=== PATIENT | female | born 1945 | race Two or more races ===

== ENCOUNTER 2017-08-07 18:30 | Inpatient (IN) | payer MEDICARE ==
[2017-08-07] MEDS ORDERED: OLANZapine 5 MG TABLET PO (21:15)
[2017-08-07] MEDS ORDERED: oxyCODONE IR 5 MG TABLET PO ×2 (21:15)
[2017-08-07] MEDS ORDERED: SIMETHICONE 80 MG TAB.CHEW PO (21:15)
[2017-08-07] MEDS ORDERED: risperiDONE 1 MG TABLET. PO (21:30)
[2017-08-07] MEDS: risperiDONE 1 MG TABLET. PO (21:47)
[2017-08-07] MEDS: OXcarbazepine 300 MG TABLET PO (21:47)
[2017-08-07] MEDS: oxyCODONE INTENSOL 20 MG/ML ORAL.CONC. PO (21:50)
[2017-08-07] MEDS: IV NORMAL SALINE 1000ML BAG 1,000 ML IV (22:09)
[2017-08-07] MEDS: ZOLPIDEM 5 MG TABLET. PO (22:09)
[2017-08-07 22:17] LABS: HEMATOCRIT 40.6 % (36.0-47.0); MEAN CORPUSCULAR HEMOGLOBIN 31 pg (25-35); MEAN CORPUSCULAR HGB CONC 35 g/dL (31-37); MEAN CORPUSCULAR VOLUME 91 fL (79-100); PLATELET COUNT 298 x10^3/uL (140-400); RED BLOOD COUNT 4.49 x10^6/uL (3.50-5.40); RED CELL DISTRIBUTION WIDTH 12.7 % (11.5-14.5)
[2017-08-07 22:34] LABS: ALBUMIN 3.5 g/dL (3.4-5.0); ALBUMIN/GLOBULIN RATIO 0.9 (1.0-1.7); ALK PHOS 135 U/L (46-116); ALT (SGPT) 19 U/L (14-59); ANION GAP 12 (6-14); AST (SGOT) 15 U/L (15-37); BLOOD UREA NITROGEN 4 mg/dL (7-20); BUN/CREATININE RATIO 5 (6-20); CALCIUM 9.3 mg/dL (8.5-10.1); CARBON DIOXIDE 25 mmol/L (21-32); CHLORIDE 103 mmol/L (98-107); CREATININE 0.8 mg/dL (0.6-1.0); GFR 70.9; GLUCOSE 128 mg/dL (70-99); POTASSIUM 3.6 mmol/L (3.5-5.1); SODIUM 140 mmol/L (136-145); TOTAL BILIRUBIN 0.4 mg/dL (0.2-1.0); TOTAL PROTEIN 7.5 g/dL (6.4-8.2)
[2017-08-08] MEDS: oxyCODONE INTENSOL 20 MG/ML ORAL.CONC. PO ×4 (03:00→20:59)
[2017-08-08] MEDS: IV NORMAL SALINE 1000ML BAG 1,000 ML IV ×2 (09:07→23:50)
[2017-08-08] MEDS: OXcarbazepine 300 MG TABLET PO ×3 (09:08→21:00)
[2017-08-08] MEDS ORDERED: MAGNESIUM HYDROXIDE 2,400 MG/30 ML ORAL.SUSP. PO (09:45)
[2017-08-08] MEDS ORDERED: diphenhydrAMINE HCL 25 MG CAPSULE PO (09:45)
[2017-08-08] MEDS ORDERED: ACETAMINOPHEN 325 MG TABLET. PO (09:45)
[2017-08-08] MEDS: CHOLECALCIFEROL (VITAMIN D3) 5,000 UNIT CAPSULE PO (10:00)
[2017-08-08] MEDS: MULTIVITAMIN with MINERAL TABLET. PO (10:00)
[2017-08-08] MEDS: HYDROCORTISONE ACETATE 25 MG SUPP.RECT RC ×3 (10:00→21:00)
[2017-08-08] MEDS: DIPHENOXYLATE/ATROPINE TABLET. PO ×3 (11:00→21:00)
[2017-08-08] MEDS ORDERED: NON FORMULARY ITEM (Albuterol Sulfate (Albuterol Sulfate Conc Neb Soln) 1 VIAL) NEB (12:00)
[2017-08-08] MEDS: ALBUTEROL SULFATE 2.5 MG/3 ML NEBU. NEB ×3 (12:00→18:00)
[2017-08-08] MEDS: IV RINGERS,LACTATED 1000ML 1,000 ML IV (12:22)
[2017-08-08] MEDS ORDERED: fentaNYL PF VIAL 100 MCG/2 ML VIAL IV ×2 (12:30)
[2017-08-08] MEDS ORDERED: LIDOCAINE 1% PF 2 ML VIAL. ID (12:30)
[2017-08-08] MEDS ORDERED: MIDAZOLAM HCL/PF 2 MG/2 ML VIAL. IV (12:30)
[2017-08-08] MEDS ORDERED: PROPOFOL 20 ML IV (13:17)
[2017-08-08] MEDS ORDERED: LIDOCAINE 2% PF Vial for OR 5 ML VIAL. (13:18)
[2017-08-08] MEDS: ONABOTULINUMTOXINA 100 UNIT VIAL. ID ×2 (13:27→13:30)
[2017-08-08] MEDS: MORPHINE SULFATE 4 MG/ML DISP.SYRIN. IV ×2 (16:20→23:50)
[2017-08-08] MEDS: ZOLPIDEM 5 MG TABLET. PO (20:52)
[2017-08-08] MEDS: risperiDONE 1 MG TABLET. PO (20:58)
[2017-08-09] MEDS: DIPHENOXYLATE/ATROPINE TABLET. PO ×3 (09:18→21:00)
[2017-08-09] MEDS: OXcarbazepine 300 MG TABLET PO ×2 (09:18→21:00)
[2017-08-09] MEDS: CHOLECALCIFEROL (VITAMIN D3) 5,000 UNIT CAPSULE PO (09:19)
[2017-08-09] MEDS: HYDROCORTISONE ACETATE 25 MG SUPP.RECT RC ×3 (09:19→21:00)
[2017-08-09] MEDS: MULTIVITAMIN with MINERAL TABLET. PO (09:19)
[2017-08-09] MEDS: oxyCODONE INTENSOL 20 MG/ML ORAL.CONC. PO ×3 (09:31→18:13)
[2017-08-09 09:57] LABS: BILIRUBIN,URINE NEGATIVE (NEG); CLARITY,URINE CLEAR; COLOR,URINE YELLOW; GLUCOSE,URINE NEGATIVE (NEG); NITRITE,URINE NEGATIVE (NEG); PH,URINE 7.5; PROTEIN,URINE NEGATIVE (NEG-TRACE); UROBILINOGEN,URINE 0.2 mg/dL (0.2 mg/dL)
[2017-08-09 10:06] LABS: BACTERIA,URINE FEW /HPF (0-FEW); RBC,URINE 0 /HPF (0-2); SQUAMOUS EPITHELIAL CELL,UR MOD /LPF
[2017-08-09] MEDS: IV NORMAL SALINE 1000ML BAG 1,000 ML IV (11:15)
[2017-08-09] MEDS: risperiDONE 1 MG TABLET. PO (21:10)
[2017-08-09] MEDS: ZOLPIDEM 5 MG TABLET. PO (21:10)
[2017-08-10] MEDS: oxyCODONE INTENSOL 20 MG/ML ORAL.CONC. PO ×5 (03:11→22:13)
[2017-08-10 08:11] LABS: THYROID STIM HORMONE (TSH) 1.296 uIU/mL (0.358-3.74)
[2017-08-10] MEDS: OXcarbazepine 300 MG TABLET PO ×2 (09:00→21:00)
[2017-08-10] MEDS: DIPHENOXYLATE/ATROPINE TABLET. PO ×3 (09:00→21:00)
[2017-08-10] MEDS: CHOLECALCIFEROL (VITAMIN D3) 5,000 UNIT CAPSULE PO (09:00)
[2017-08-10] MEDS: HYDROCORTISONE ACETATE 25 MG SUPP.RECT RC ×3 (09:00→21:00)
[2017-08-10] MEDS: MULTIVITAMIN with MINERAL TABLET. PO (09:00)
[2017-08-10 12:25] LABS: ADD MAN DIFF? NO
[2017-08-10 12:27] LABS: BASO % 1 % (0-3); EOS % 1 % (0-3); HEMATOCRIT 38.7 % (36.0-47.0); HEMOGLOBIN 13.3 g/dL (12.0-15.5); LYMPH # 1.8 x10^3/uL (1.0-4.8); LYMPH % 37 % (24-48); MEAN CORPUSCULAR HEMOGLOBIN 31 pg (25-35); MEAN CORPUSCULAR HGB CONC 34 g/dL (31-37); MEAN CORPUSCULAR VOLUME 90 fL (79-100); MONO # 0.7 x10^3/uL (0.0-1.1); MONO % 14 % (0-9); NEUT # 2.3 x10^3uL (1.8-7.7); NEUT % 48 % (31-73); PLATELET COUNT 267 x10^3/uL (140-400); RED BLOOD COUNT 4.31 x10^6/uL (3.50-5.40); RED CELL DISTRIBUTION WIDTH 12.6 % (11.5-14.5); WHITE BLOOD COUNT 4.8 x10^3/uL (4.0-11.0)
[2017-08-10 12:43] LABS: ALBUMIN/GLOBULIN RATIO 0.9 (1.0-1.7); ALK PHOS 121 U/L (46-116); ALT (SGPT) 14 U/L (14-59); ANION GAP 8 (6-14); AST (SGOT) 12 U/L (15-37); BLOOD UREA NITROGEN 4 mg/dL (7-20); BUN/CREATININE RATIO 6 (6-20); CARBON DIOXIDE 32 mmol/L (21-32); CHLORIDE 101 mmol/L (98-107); CREATININE 0.7 mg/dL (0.6-1.0); GFR 82.7; GLUCOSE 97 mg/dL (70-99); POTASSIUM 3.6 mmol/L (3.5-5.1); SODIUM 141 mmol/L (136-145); TOTAL BILIRUBIN 0.5 mg/dL (0.2-1.0); TOTAL PROTEIN 6.5 g/dL (6.4-8.2)
[2017-08-10 13:22] LABS: SEDIMENTATION RATE 8 (0-25)
[2017-08-10 18:15] LABS: MRSA BY PCR Positive (Negative)
[2017-08-10] MEDS: ZOLPIDEM 5 MG TABLET. PO (20:04)
[2017-08-10] MEDS: risperiDONE 1 MG TABLET. PO (20:05)
[2017-08-10] MEDS: ACETAMINOPHEN 650 MG/20.3 ML SOLUTION. PO (20:18)
[2017-08-11] MEDS: ACETAMINOPHEN 650 MG/20.3 ML SOLUTION. PO ×3 (02:23→21:03)
[2017-08-11] MEDS: oxyCODONE INTENSOL 20 MG/ML ORAL.CONC. PO ×2 (03:49→11:35)
[2017-08-11] MEDS: DIPHENOXYLATE/ATROPINE TABLET. PO ×3 (07:13→20:43)
[2017-08-11] MEDS: CHOLECALCIFEROL (VITAMIN D3) 5,000 UNIT CAPSULE PO (07:13)
[2017-08-11] MEDS: MULTIVITAMIN with MINERAL TABLET. PO (07:13)
[2017-08-11] MEDS: OXcarbazepine 300 MG TABLET PO ×2 (07:13→20:43)
[2017-08-11] MEDS: HYDROCORTISONE ACETATE 25 MG SUPP.RECT RC ×3 (07:14→20:43)
[2017-08-11] MEDS: SIMETHICONE/SOD BICARB/CITRIC ACID PACKET. PO (07:30)
[2017-08-11] MEDS: BARIUM SULFATE 340 GM SUSPENSION. PO (07:30)
[2017-08-11] MEDS: BARIUM SULFATE 60% 355 ML SUSP PO (07:30)
[2017-08-11 11:58] LABS: HEMATOCRIT 39.6 % (36.0-47.0); HEMOGLOBIN 13.6 g/dL (12.0-15.5); MEAN CORPUSCULAR HEMOGLOBIN 31 pg (25-35); MEAN CORPUSCULAR HGB CONC 34 g/dL (31-37); MEAN CORPUSCULAR VOLUME 90 fL (79-100); PLATELET COUNT 276 x10^3/uL (140-400); RED CELL DISTRIBUTION WIDTH 12.5 % (11.5-14.5); WHITE BLOOD COUNT 4.4 x10^3/uL (4.0-11.0)
[2017-08-11 12:20] LABS: ALBUMIN/GLOBULIN RATIO 0.9 (1.0-1.7); ALK PHOS 122 U/L (46-116); ALT (SGPT) 14 U/L (14-59); ANION GAP 5 (6-14); AST (SGOT) 14 U/L (15-37); BLOOD UREA NITROGEN 5 mg/dL (7-20); BUN/CREATININE RATIO 8 (6-20); CALCIUM 8.9 mg/dL (8.5-10.1); CARBON DIOXIDE 33 mmol/L (21-32); CHLORIDE 104 mmol/L (98-107); CREATININE 0.6 mg/dL (0.6-1.0); GFR 98.8; GLUCOSE 106 mg/dL (70-99); POTASSIUM 4.6 mmol/L (3.5-5.1); SODIUM 142 mmol/L (136-145); TOTAL BILIRUBIN 0.5 mg/dL (0.2-1.0); TOTAL PROTEIN 6.3 g/dL (6.4-8.2)
[2017-08-11] MEDS: risperiDONE 1 MG TABLET. PO (20:39)
[2017-08-11] MEDS: ZOLPIDEM 5 MG TABLET. PO (20:41)
[2017-08-12] MEDS: oxyCODONE INTENSOL 20 MG/ML ORAL.CONC. PO ×5 (00:28→21:03)
[2017-08-12] MEDS: DIPHENOXYLATE/ATROPINE TABLET. PO ×3 (07:42→19:47)
[2017-08-12] MEDS: HYDROCORTISONE ACETATE 25 MG SUPP.RECT RC ×3 (07:43→19:47)
[2017-08-12] MEDS: CHOLECALCIFEROL (VITAMIN D3) 5,000 UNIT CAPSULE PO (07:43)
[2017-08-12] MEDS: MULTIVITAMIN with MINERAL TABLET. PO (07:43)
[2017-08-12] MEDS: OXcarbazepine 300 MG TABLET PO ×2 (07:43→19:46)
[2017-08-12 10:14] LABS: BILIRUBIN,URINE NEGATIVE (NEG); CLARITY,URINE CLEAR; GLUCOSE,URINE NEGATIVE (NEG); NITRITE,URINE NEGATIVE (NEG); PROTEIN,URINE NEGATIVE (NEG-TRACE)
[2017-08-12 10:30] LABS: BACTERIA,URINE FEW /HPF (0-FEW); COLOR,URINE COLORLESS; RBC,URINE RARE /HPF (0-2); SQUAMOUS EPITHELIAL CELL,UR FEW /LPF
[2017-08-12 12:13] LABS: FOLATE 4.81 ng/ml (3.2-20.0)
[2017-08-12 12:13] LABS: VITAMIN-B12 510 pg/mL (247-911)
[2017-08-12] MEDS: ACETAMINOPHEN 650 MG/20.3 ML SOLUTION. PO (12:26)
[2017-08-12 16:15] LABS: IMMUNOGLOBULIN A 111 mg/dL (87-352); IMMUNOGLOBULIN G 950 mg/dL (700-1600); IMMUNOGLOBULIN M 51 mg/dL (26-217)
[2017-08-12 20:10] LABS: ANA INTERP Positive (.)
[2017-08-12] MEDS: ZOLPIDEM 5 MG TABLET. PO (21:01)
[2017-08-12] MEDS: risperiDONE 1 MG TABLET. PO (21:02)
[2017-08-13] MEDS: HYDROCORTISONE ACETATE 25 MG SUPP.RECT RC (09:00)
[2017-08-13] MEDS: DIPHENOXYLATE/ATROPINE TABLET. PO (09:00)
[2017-08-13] MEDS: CYANOCOBALAMIN (VITAMIN B-12) 1,000 MCG/ML VIAL IM (09:00)
[2017-08-13] MEDS: CHOLECALCIFEROL (VITAMIN D3) 5,000 UNIT CAPSULE PO (09:00)
[2017-08-13] MEDS: OXcarbazepine 300 MG TABLET PO (09:00)
[2017-08-13] MEDS: MULTIVITAMIN with MINERAL TABLET. PO (09:00)
[2017-08-13] MEDS: oxyCODONE INTENSOL 20 MG/ML ORAL.CONC. PO (09:19)
== END 2017-08-13 14:02 | disposition home or self-care (01) | DRG 563 ==
LOC: 5 NORTH 18:30
PROC: 0DJ08ZZ Inspection of Upper Intestinal Tract, Via Natural or Artificial Opening Endoscopic (ICD-10-PCS; principal; 2017-08-08 13:00)
PROC: 3E0G8GC Introduction of Other Therapeutic Substance into Upper GI, Via Natural or Artificial Opening Endoscopic (ICD-10-PCS; 2017-08-08 13:00)
DX: S42.034A Nondisplaced fracture of lateral end of right clavicle, initial encounter for closed fracture (principal); K22.0 Achalasia of cardia; F22 Delusional disorders; G62.9 Polyneuropathy, unspecified; W18.39XA Other fall on same level, initial encounter; F41.9 Anxiety disorder, unspecified; Y92.238 Other place in hospital as the place of occurrence of the external cause; K21.9 Gastro-esophageal reflux disease without esophagitis; K44.9 Diaphragmatic hernia without obstruction or gangrene; K31.84 Gastroparesis; M25.78 Osteophyte, vertebrae; M46.02 Spinal enthesopathy, cervical region; G89.29 Other chronic pain; F60.9 Personality disorder, unspecified; F43.10 Post-traumatic stress disorder, unspecified; Z86.73 Personal history of transient ischemic attack (TIA), and cerebral infarction without residual deficits; Z88.8 Allergy status to other drugs, medicaments and biological substances; Z91.041 Radiographic dye allergy status; Y93.89 Activity, other specified; Y99.8 Other external cause status; Z87.11 Personal history of peptic ulcer disease
CPT/HCPCS: 36415; 72040; 72072; 72100; 74220; 80053; 81001; 82607; 82746; 84443; 85025; 85027; 85651; 86038; 86334; 87086; 87641; 94640; 97161-GP; 97166-GO; 97530-GP; A4314; J0585; J2270; J2704; J7030; J7120